=== PATIENT | female | born 1975 | race African-American/Black ===

== ENCOUNTER 2018-02-26 08:40 | Day surgery (SDC) | payer BC ==
[~2018-02-26] VITALS: Ht 167.6 cm; Wt 74.8 kg
[2018-02-26] MEDS ORDERED: SEVOFLURANE 15 MIN GAS INH ONE (09:50)
[2018-02-26] MEDS ORDERED: ONDANSETRON HCL 4 MG/2 ML VIAL IVP ONE (09:50)
[2018-02-26] MEDS ORDERED: ROCURONIUM BROMIDE 10 MG/ML (ZEMURON) IV ONE (09:50)
[2018-02-26] MEDS ORDERED: PROPOFOL 200MG/ 20ML VIAL (DIPRIVAN) IV ONE (09:50)
[2018-02-26] MEDS ORDERED: LR 1,000 ML IV.SOLN IV ONE (09:50)
[2018-02-26] MEDS ORDERED: fentaNYL CITRATE/PF 100 MCG/2 ML AMP IVP ONE (09:50)
[2018-02-26] MEDS ORDERED: DEXAMETHASONE SOD PHOSPHATE 4 MG/ML VIAL IVP ONE (09:50)
[2018-02-26] MEDS ORDERED: KETOROLAC TROMETHAMINE 30 MG VIAL IVP ONE (09:50)
[2018-02-26] MEDS ORDERED: MIDAZOLAM HCL 5 MG/5 ML VIAL IVP ONE (09:50)
[2018-02-26] MEDS ORDERED: NS 1000 ML IV.SOLN IV ONE (09:50)
[2018-02-26] MEDS ORDERED: LR 1,000 ML IV SCH (10:57)
[2018-02-26] MEDS ORDERED: HYDROmorphone 1 MG INJ. 1 MG/ML AMPUL IVP PRN (11:00)
[2018-02-26] MEDS ORDERED: HYDROmorphone 2 MG/ML VIAL IVP PRN ×2 (11:00)
[2018-02-26] MEDS ORDERED: MEPERIDINE HCL/PF 25 MG/ML DISP.SYRIN IVP PRN (11:00)
[2018-02-26] MEDS ORDERED: PROMETHAZINE HCL 25 MG/ML AMP IM PRN (11:15)
[2018-02-26] MEDS ORDERED: ONDANSETRON HCL 4 MG/2 ML VIAL IVP PRN (11:15)
[2018-02-26 12:02] VITALS: BP_SYST 127
== END 2018-02-26 13:05 | disposition home or self-care (01) ==
LOC: SDS 08:40 → SMU 08:40 → SDS 13:05
PROVIDERS: ATTEND Obstetrics & Gynecology
DX: T83.32XA Displacement of intrauterine contraceptive device, initial encounter (principal); N84.0 Polyp of corpus uteri; N71.1 Chronic inflammatory disease of uterus; Z98.890 Other specified postprocedural states; Z82.49 Family history of ischemic heart disease and other diseases of the circulatory system; Z83.3 Family history of diabetes mellitus; Z80.41 Family history of malignant neoplasm of ovary; Z88.8 Allergy status to other drugs, medicaments and biological substances
CPT/HCPCS: 36415; 58562; 86886; 86900; 86901; 88305; C1819; J1100; J1885; J2250; J2405; J2704; J3010; J7030; J7120